=== PATIENT | female | born 1945 | race Caucasian/White ===

== ENCOUNTER 2024-01-03 03:51 | Inpatient (IN) | payer OTHER ==
[2024-01-03] VITALS (9 sets, daily range): BP systolic 108–137; BP diastolic 62–69; PULSE 49–62; RESP 14–20; TEMP 98.2–98.9; O2SAT 63–98
[~2024-01-03] VITALS: Ht 162.6 cm; Wt 64.6 kg
[~2024-01-03 03:51] MED LIST: CARB-86 PO; CHOL135C10 PO; GABA-339 PO; INDA1.252 PO; METF-370 PO
[2024-01-03] MEDS: ASPirin 81 mg TAB PO ONE (04:15)
[2024-01-03 04:24] LABS: Basophils # (auto) 0 10 ^3/uL (0-0.2); Basophils % (auto) 0.3 % (0.0-2.0); Eosinophils # (auto) 0 10 ^3/uL (0-0.8); Eosinophils % (auto) 0.2 % (0.0-7.0); Hematocrit 32.8 % (36.0-46.0); Hemoglobin 11.6 g/dL (12.2-16.2); Lymphocytes # (auto) 0.3 10 ^3/uL (0.4-5.4); Lymphocytes % (auto) 2.1 % (10.0-50.0); Mean Corpuscular Hemoglobin 32.2 pg (28.0-32.0); Mean Corpuscular Hgb Conc. 35.5 g/dL (32.0-36.0); Mean Corpuscular Volume 90.8 fL (80.0-100.0); Monocytes # (auto) 0.9 10 ^3/uL (0-1.3); Monocytes % (auto) 6.1 % (0.0-12.0); Neutrophils # (auto) 13.6 10 ^3/uL (1.6-8.6); Neutrophils % (auto) 91.3 % (37.0-80.0); Platelet Count (auto) 148 10^3/uL (140-450); Red Blood Cells 3.61 10^6/uL (4.0-5.20); Red Cell Distribution Width 13.3 % (11.8-14.3); White Blood Cell 14.9 10^3/uL (4.4-10.8)
[2024-01-03 04:29] LABS: Chloride 101 mmol/L (98-107); Potassium 3.7 mmol/L (3.5-5.1); Sodium 133 mmol/L (136-145)
[2024-01-03 04:30] LABS: Anion Gap 6 (5-15); Calcium 9.1 mg/dL (8.7-10.4); Carbon Dioxide 26 mmol/L (20-30)
[2024-01-03 04:35] LABS: BUN/Creatinine Ratio 9.2 (10.0-20.0); Blood Urea Nitrogen 9 mg/dL (9-23); Glucose 101 mg/dL (74-106)
[2024-01-03 04:42] LABS: Lactic Acid w/Reflex 2.1 mmol/L (0.4-2.0)
[2024-01-03] MEDS ORDERED: SULFAMETH-TRIMETH 80/16MG-ML 10 ML in D5W 5% 250 ML IV ONE (05:15)
[2024-01-03] MEDS: ENOXAPARIN SOD 60 MG/0.6 ML SYRINGE SC ONE (05:44)
[2024-01-03] MEDS ORDERED: NITROGLYCERIN 0.4 MG SL TAB SL PRN (06:30)
[2024-01-03] MEDS ORDERED: MORPHINE SULFATE INJ 2 MG/ml SYRG IV PRN (06:30)
[2024-01-03 06:37] LABS: Urine Bacteria FEW /hpf (None Seen); Urine Blood 2+ /uL (Negative); Urine Clarity Turbid (Clear); Urine Color Colorless (Yellow); Urine Hyaline Cast FEW /lpf (0 - 2); Urine Mucus FEW (None Seen); Urine Protein, UAD TRACE (Negative); Urine Specific Gravity 1.018 (1.001-1.035); Urine Urobilinogen Normal (Negative); Urine WBC 38 /hpf (0 - 5); Urine WBC Clumps PRESENT /hpf (None Seen); Urine pH 6.5 (5.0-9.0)
[2024-01-03] MEDS: SODIUM CHLORIDE 0.9% 1,000 ML IV ONE (06:59)
[2024-01-03] MEDS: SULFAMETH-TRIMETH 80/16MG-ML 10 ML in D5W 5% 250 ML IV ONE (08:47)
[2024-01-03] MEDS: levoFLOXacin 500MG 100 ML IV SCH (10:11)
[2024-01-03] MEDS: ASPirin-EC 81 mg tab PO SCH (10:11)
[2024-01-03] MEDS: IOHEXOL 350 MG/ML 100ML IJ ONE (11:23)
[2024-01-03] MEDS: ENOXAPARIN SOD 60 MG/0.6 ML SYRINGE SC SCH (12:12)
[2024-01-03] MEDS ORDERED: CARB-112 PO (14:31)
[2024-01-03] MEDS ORDERED: LISI2.5T47 PO (14:33)
[2024-01-03] MEDS ORDERED: FENO145T27 PO (14:33)
[2024-01-03] MEDS ORDERED: ATOR20TA50 PO (14:33)
[2024-01-03] MEDS ORDERED: INDA2.5T PO (14:35)
[2024-01-03] MEDS ORDERED: DONE1TAB88 PO (14:36)
[2024-01-03] MEDS ORDERED: CHOL20007 PO (14:36)
[2024-01-03] MEDS: CARBIDOPA W LEVODOPA 25/100mg TABLET PO SCH (23:29)
[2024-01-04 01:00] VITALS: BP 110/62; PULSE 87; RESP 16; TEMP 98.2; O2SAT 93
[2024-01-04 05:00] VITALS: BP 121/81; PULSE 94; RESP 18; TEMP 97.5; O2SAT 97
[2024-01-04 07:05] LABS: Basophils # (auto) 0 10 ^3/uL (0-0.2); Basophils % (auto) 0.2 % (0.0-2.0); Eosinophils # (auto) 0 10 ^3/uL (0-0.8); Eosinophils % (auto) 0.1 % (0.0-7.0); Hematocrit 34.6 % (36.0-46.0); Hemoglobin 12.4 g/dL (12.2-16.2); Lymphocytes # (auto) 0.3 10 ^3/uL (0.4-5.4); Lymphocytes % (auto) 3.2 % (10.0-50.0); Mean Corpuscular Hemoglobin 32.3 pg (28.0-32.0); Mean Corpuscular Hgb Conc. 35.6 g/dL (32.0-36.0); Mean Corpuscular Volume 90.7 fL (80.0-100.0); Monocytes # (auto) 0.4 10 ^3/uL (0-1.3); Monocytes % (auto) 3.5 % (0.0-12.0); Neutrophils # (auto) 9.5 10 ^3/uL (1.6-8.6); Platelet Count (auto) 127 10^3/uL (140-450); Red Blood Cells 3.82 10^6/uL (4.0-5.20); Red Cell Distribution Width 13.4 % (11.8-14.3); White Blood Cell 10.2 10^3/uL (4.4-10.8)
[2024-01-04 07:41] LABS: Albumin 3.8 g/dL (3.2-4.8); Alkaline Phosphatase 53 U/L (46-116); Anion Gap 8 (5-15); Aspartate Aminotransferase 50 U/L (13-40); Bilirubin, Total 0.8 mg/dL (0.2-1.0); Blood Urea Nitrogen 11 mg/dL (9-23); Calcium 9.7 mg/dL (8.7-10.4); Carbon Dioxide 20 mmol/L (20-30); Chloride 101 mmol/L (98-107); Glucose 159 mg/dL (74-106); Potassium 3.5 mmol/L (3.5-5.1); Sodium 129 mmol/L (136-145); Total Protein 6.1 g/dL (5.7-8.2)
[2024-01-04 07:45] LABS: Alanine Aminotransferase < 9 U/L (7-40)
[2024-01-04 09:00] VITALS: BP 119/81; PULSE 78; RESP 18; TEMP 97.9; O2SAT 95
[2024-01-04] MEDS ORDERED: DEXTROSE (50%) 50ML SYRG IV PRN (11:00)
[2024-01-04] MEDS: ACCU-CHEK COMFORT CURVE STRIP VI SCH (11:37)
[2024-01-04] MEDS: InsuLIN REG 1unit/0.01ml Soln (100units/ml) SC SCH (11:40)
[2024-01-04 13:00] VITALS: BP 120/74; PULSE 88; RESP 18; TEMP 97.5; O2SAT 96
[2024-01-04] MEDS ORDERED: ASPI-543 PO (13:50)
[2024-01-04] MEDS ORDERED: LEVO750T40 PO (14:21)
[2024-01-04 17:00] VITALS: BP 127/77; PULSE 78; RESP 18; TEMP 98; O2SAT 96
== END 2024-01-04 18:18 | disposition home or self-care (01) | DRG 280 ==
LOC: EDBD 03:51 → ER 03:51 → TELE 06:37 → TELE-CENTR 13:27
PROVIDERS: ADMIT Internal Medicine; ATTEND Internal Medicine
DX: I21.4 Non-ST elevation (NSTEMI) myocardial infarction (principal); G93.41 Metabolic encephalopathy; I31.39 Other pericardial effusion (noninflammatory); N39.0 Urinary tract infection, site not specified; J98.11 Atelectasis; I37.1 Nonrheumatic pulmonary valve insufficiency; I35.1 Nonrheumatic aortic (valve) insufficiency; F02.80 Dementia in other diseases classified elsewhere, unspecified severity, without behavioral disturbance, psychotic disturbance, mood disturbance, and anxiety; E11.9 Type 2 diabetes mellitus without complications; I10 Essential (primary) hypertension; E78.5 Hyperlipidemia, unspecified; I25.10 Atherosclerotic heart disease of native coronary artery without angina pectoris; G20.A1 Parkinson's disease without dyskinesia, without mention of fluctuations; I44.7 Left bundle-branch block, unspecified; Z88.0 Allergy status to penicillin; Z79.899 Other long term (current) drug therapy; Z90.49 Acquired absence of other specified parts of digestive tract; Z90.710 Acquired absence of both cervix and uterus
CPT/HCPCS: 36415; 70450; 71045; 71250; 71275; 80048; 80053; 81001; 82962; 83605; 83880; 84484; 85025; 85379; 87040; 87086; 93005; 93306; 93970; 96361; 96365; 96367; 96372; 99291; G0378; J1815; J1956; J3490; J7060